=== PATIENT | female | born 1950 | race Caucasian/White ===

== ENCOUNTER 2016-12-02 07:12 | Inpatient (IN) | payer MEDICARE, OTHER ==
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
[~2016-12-02 07:12] MED LIST: ANSAID100 MG PO; ASA5GR PO; B121000P IM; BENTYL10 PO; COREG12 PO; COREG6 PO; COZAAR100 MG PO; CYMBALTA60 PO; DHE1 PO; ESTRACE1 MG PO; FERREX 150150 MG PO; FISH OIL1200 MG PO; FISH-EPA1000 MG PO; FLEX PO; FLURBIPROFEN100 MG PO; GLUCPH PO; HALF81 PO; HYDROCODONE 7.5/325; KLOR-CON 1010 MEQ PO; L40 PO; LOTENSIN HCT1 TA2 PO; MAGOX4 PO; NEUR300 PO; NORCO1 TA2 PO; PREM625 PO; PRILO PO; PROZAC PO; REQUIP1 PO; REQUIP3 PO; SPIRO25 PO; SYMBICORT 160/41 INH INH; TRICOR145 PO; VENTOLIN HFA INH; VERELAN240 MG PO; VITAMIN B12 IJ; X5 PO; ZETIA PO; ZOCOR10 PO
[2016-12-02 08:57] LABS: ALBUMIN 3.3 G/DL (3.5-5.0); BUN (BLOOD UREA NITROGEN) 18 MG/DL (6-23); CALCIUM, SERUM 8.6 MG/DL (8.5-10.4); CHEST PAIN PROFILE TAT 0 Hrs 23 Mins; CHLORIDE, SERUM 101 MMOL/L (96-112); CO2 (CARBON DIOXIDE) 30 MMOL/L (24-34); CREATININE 0.75 MG/DL (0.55-1.02); DIRECT BILIRUBIN 0.1 MG/DL (0.0-0.4); GFR AFRICAN AMERICAN 96 ML/MIN (>=60); GFR NON AFRICAN AMERICAN 82 ML/MIN (>=60); GLUCOSE, SERUM 153 MG/DL (60-99); INDIRECT BILIRUBIN(NOT ORDER) 0.5 MG/DL (0.1-0.9); POTASSIUM, SERUM 4.4 MMOL/L (3.5-5.3); SGOT(AST) 21 U/L (5-40); SGPT(ALT) 17 U/L (5-65); SODIUM, SERUM 141 MMOL/L (135-148); TOTAL BILIRUBIN 0.6 MG/DL (0-1.2); TOTAL PROTEIN 7.1 G/DL (6.0-8.5); TROPONIN I <0.02 NG/ML (<0.05)
[2016-12-02 08:58] LABS: ALKALINE PHOSPHATASE 89 U/L (45-117)
[2016-12-02 10:26] LABS: BASOPHILS 0.3 %; BASOPHILS ABSOLUTE 0.02 10/3/uL (0.0-0.16); EOSINOPHILS 4.3 %; EOSINOPHILS ABSOLUTE 0.33 10/3/uL (0.0-0.53); ER CBC TAT 0 Hrs 03 Mins; HEMOGLOBIN 10.7 g/dL (12.0-16.0); IMMATURE GRANULOCYTES 0.4 %; IMMATURE GRANULOCYTES ABSOLUTE 0.03 10/3/uL (0.0-0.11); LYMPHOCYTES 10.9 %; LYMPHOCYTES ABSOLUTE 0.84 10/3/uL (0.67-4.30); MEAN CORPUSCULAR HEMOGLOB 28.1 pg (26.0-34.0); MEAN PLATELET VOLUME 8.8 fL (9.2-13.0); MONOCYTES 8.9 %; MONOCYTES ABSOLUTE 0.69 10/3/uL (0.21-1.20); NEUTROPHILS 75.2 %; NEUTROPHILS ABSOLUTE 5.83 10/3/uL (2.02-8.40); RBC DISTRIBUTION WIDTH 15.8 % (12.0-16.0); RED CELL COUNT 3.81 10/6/uL (4.0-5.6); WHITE BLOOD CELLS 7.7 10/3/uL (4.5-10.5)
[2016-12-02 10:27] LABS: HEMATOCRIT 32.4 % (36.0-48.0); MANUAL DIFF NO %; PLATELET COUNT 139 10/3/uL (150-400)
[2016-12-02 10:34] LABS: INTERNATIONAL NORMAL RATI 1.1 UNITS (-); PARTIAL THROMBO TIME 29.3 SEC (22.5-37.2); PROTIME (NOT ORD) 14.4 SEC (12.0-14.5)
[2016-12-02 20:06] LABS: FREE T4 1.23 NG/DL (0.76-1.46); PHOSPHORUS, SERUM 3.8 MG/DL (2.5-4.5)
[2016-12-03 06:19] LABS: BASOPHILS 0.1 %; BASOPHILS ABSOLUTE 0.01 10/3/uL (0.0-0.16); EOSINOPHILS 0 %; HEMATOCRIT 31.2 % (36.0-48.0); HEMOGLOBIN 10.3 g/dL (12.0-16.0); IMMATURE GRANULOCYTES 0.3 %; IMMATURE GRANULOCYTES ABSOLUTE 0.04 10/3/uL (0.0-0.11); LYMPHOCYTES 6.9 %; MANUAL DIFF NO %; MEAN CORPUSCULAR HEMOGLOB 28.3 pg (26.0-34.0); MEAN CORPUSCULAR VOLUME 85.7 fL (80-100); MEAN PLATELET VOLUME 9.1 fL (9.2-13.0); MONOCYTES 7.1 %; MONOCYTES ABSOLUTE 0.82 10/3/uL (0.21-1.20); NEUTROPHILS 85.6 %; NEUTROPHILS ABSOLUTE 9.89 10/3/uL (2.02-8.40); PLATELET COUNT 169 10/3/uL (150-400); RBC DISTRIBUTION WIDTH 15.3 % (12.0-16.0); RED CELL COUNT 3.64 10/6/uL (4.0-5.6); WHITE BLOOD CELLS 11.6 10/3/uL (4.5-10.5)
[2016-12-03 06:44] LABS: ALBUMIN 3.2 G/DL (3.5-5.0); ALKALINE PHOSPHATASE 80 U/L (45-117); CALCIUM, SERUM 8.9 MG/DL (8.5-10.4); CHLORIDE, SERUM 97 MMOL/L (96-112); CO2 (CARBON DIOXIDE) 31 MMOL/L (24-34); CREATININE 0.75 MG/DL (0.55-1.02); GFR AFRICAN AMERICAN 96 ML/MIN (>=60); GFR NON AFRICAN AMERICAN 82 ML/MIN (>=60); PHOSPHORUS, SERUM 3.4 MG/DL (2.5-4.5); POTASSIUM, SERUM 4.4 MMOL/L (3.5-5.3); SGOT(AST) 13 U/L (5-40); SGPT(ALT) 15 U/L (5-65); SODIUM, SERUM 135 MMOL/L (135-148)
[2016-12-03 06:45] LABS: A/G RATIO 0.8 (0.7-1.9); BUN (BLOOD UREA NITROGEN) 25 MG/DL (6-23); GLOBULIN 3.8 G/DL (2.5-4.1); GLUCOSE, SERUM 198 MG/DL (60-99); TOTAL BILIRUBIN 1.2 MG/DL (0-1.2)
[2016-12-03 12:42] LABS: INTERNATIONAL NORMAL RATI 1.1 UNITS (-); PARTIAL THROMBO TIME 29.7 SEC (22.5-37.2); PROTIME (NOT ORD) 14.3 SEC (12.0-14.5)
== END 2016-12-04 18:25 | disposition home or self-care (01) | DRG 200 ==
LOC: ER 07:12 → 5NO 15:00
PROVIDERS: Emergency Medicine; Internal Medicine; Physician Assistant Medical
DX: J93.83 Other pneumothorax (principal); I42.9 Cardiomyopathy, unspecified; J90 Pleural effusion, not elsewhere classified; I27.2 Other secondary pulmonary hypertension; M32.9 Systemic lupus erythematosus, unspecified; I50.22 Chronic systolic (congestive) heart failure; I11.0 Hypertensive heart disease with heart failure; V49.59XA Passenger injured in collision with other motor vehicles in traffic accident, initial encounter; I44.7 Left bundle-branch block, unspecified; Z95.810 Presence of automatic (implantable) cardiac defibrillator; E78.5 Hyperlipidemia, unspecified; G47.33 Obstructive sleep apnea (adult) (pediatric); Z99.81 Dependence on supplemental oxygen; Z90.49 Acquired absence of other specified parts of digestive tract; E11.9 Type 2 diabetes mellitus without complications; Z79.84 Long term (current) use of oral hypoglycemic drugs; D50.9 Iron deficiency anemia, unspecified
CPT/HCPCS: 71010; 71275; 80048; 80053; 80069; 80076; 82150; 82962; 83615; 83690; 83735; 83880; 84100; 84439; 84443; 84484; 85025; 85379; 85610; 85730; 93005; 94640; 96365; 96375; 99285; A9270-GY; J1885; J2405; J2800; J2930; Q9967